=== PATIENT | female | born 1995 | race American Indian/Alaskan Native ===

== ENCOUNTER 2019-12-20 22:43 | Emergency (ER) | payer BC ==
[2019-12-21 00:03] VITALS: BP 122/85
[2019-12-21 00:52] LABS: Hemoglobin 14.3 gm/dl (10.1-14.3); Mean Corpuscular HGB Conc 34 % (30-34); Mean Corpuscular Volume 94 fl (79-97); Platelet Count 277 K/mm3 (140-440); Red Blood Count 4.46 M/mm3 (3.65-5.03); Red Cell Distribution Width 12.7 % (13.2-15.2)
[2019-12-21 01:08] LABS: Bacteria,Urine 1+ /HPF (Negative); Bilirubin,Urine NEG (Negative); Blood,Urine NEG (Negative); Color,Urine Amber (Yellow); Mucus,Urine 3+ /HPF
[2019-12-21 02:28] LABS: Anisocytosis 1+; Band Neutrophils # (Manual) 0.1 K/mm3; Eosinophils % (Manual) 0 % (0.0-4.3); Platelet Estimate Consistent w Auto; Total Cells Counted 100
--- NOTE | 2019-12-21 03:35 | Emergency Department Report ---
ED Female HPI - General Chief complaint: Vaginal Bleeding Stated complaint: ABD PAIN Time Seen by Provider: 12/21/19 02:02 Source: patient Mode of arrival: Ambulatory Limitations: No Limitations - History of Present Illness Initial comments: 24-year-old -Finnish female presents to the emergency department complaining of a 5-day history of heavy vaginal bleeding with pelvic cramping off and on and having no menses for the last 2 months. Reports no fever, chills, sweats no chest pain or palpitations no nausea vomiting no abdominal trauma. MD Complaint: vaginal bleeding -: Gradual Location: suprapubic Radiation: suprapubic Severity: mild Quality: dull Consistency: constant Improves with: none Worsens with: none Associated Symptoms: vaginal bleeding. denies: abdominal pain, loss of sridevi etite, dysuria, shortness of breath, weakness - Related Data Allergies Allergy/AdvReac Type Severity Reaction Status Date / Time No Known Allergies Allergy Unverified 12/21/19 00:00 ED Review of Systems ROS: Stated complaint: ABD PAIN Other details as noted in HPI Comment: All other systems reviewed and negative ED Past Medical Hx - Past Medical History Previous Medical History?: No - Surgical History Past Surgical History?: No - Social History Smoking Status: Current Every Day Smoker Substance Use Type: Marijuana ED Physical Exam - General Limitations: No Limitations General appearance: alert, in no apparent distress - Head Head exam: Present: atraumatic, normocephalic - Eye Eye exam: Present: normal appearance, PERRL, EOMI - ENT ENT exam: Present: mucous membranes moist - Neck Neck exam: Present: normal inspection - Respiratory Respiratory exam: Present: normal lung sounds bilaterally. Absent: respiratory distress - Cardiovascular Cardiovascular Exam: Present: regular rate, normal rhythm. Absent: systolic murmur, diastolic murmur, rubs, gallop - GI/Abdominal GI/Abdominal exam: Present: soft, tenderness, normal bowel sounds. Absent: guarding, rebound, hyperactive bowel sounds, hypoactive bowel sounds - Extremities Exam Extremities exam: Present: normal inspection, normal capillary refill - Back Exam Back exam: Present: normal inspection. Absent: CVA tenderness (R), CVA tenderness (L) - Neurological Exam Neurological exam: Present: alert, oriented X3, CN II-XII intact, normal gait. Absent: motor sensory deficit, reflexes normal - Psychiatric Psychiatric exam: Present: normal affect, normal mood. Absent: anxious, flat affect, suicidal ideation - Skin Skin exam: Present: warm, dry, intact, normal color. Absent: rash, cyanosis, diaphoretic, erythema, petechiae, pallor ED Course Vital Signs 12/20/19 23:41 Temperature 98.3 F Pulse Rate 119 H Respiratory 18 Rate Blood Pressure 122/85 O2 Sat by Pulse 98 Oximetry ED Medical Decision Making - Lab Data Result diagrams: 12/21/19 00:13 Critical care attestation.: If time is entered above; I have spent that time in minutes in the direct care of this critically ill patient, excluding procedure time. ED Disposition Clinical Impression: Negative test, Vaginal bleeding Disposition: - TO HOME OR SELFCARE Is pt being admited?: No Does the pt Need Aspirin: No Condition: Stable Instructions: Menstruation (ED), Menorrhagia (ED), Dysfunctional Uterine Bleeding (ED) Referrals: [facility] [Provider Group] - 3-5 Days
== END 2019-12-21 03:30 | disposition home or self-care (01) ==
LOC: ED 22:43
DX: N93.9 Abnormal uterine and vaginal bleeding, unspecified (principal); R10.2 Pelvic and perineal pain; F17.200 Nicotine dependence, unspecified, uncomplicated; F12.10 Cannabis abuse, uncomplicated
CPT/HCPCS: 36415; 81001; 84702; 85007; 85025; 86900; 86901; 87086; 99283

== ENCOUNTER 2020-04-21 13:00 | Emergency (ER) | payer BC ==
[2020-04-21] MEDS ORDERED: DIPHtheria,PERTUSSIS(ACELL),TETANUS VACCINE/PF 0.5 ML VIAL IM ONE (13:16)
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
[2020-04-21] MEDS ORDERED: cephALEXin 500 MG CAP PO ONE (13:32)
[2020-04-21] MEDS ORDERED: IBUPROFEN 800 MG TAB PO ONE (13:32)
[2020-04-21 14:36] VITALS: BP 144/82
== END 2020-04-21 14:36 | disposition home or self-care (01) ==
LOC: ED 13:00
DX: T24.002A Burn of unspecified degree of unspecified site of left lower limb, except ankle and foot, initial encounter (principal); T28.2XXA Burn of other parts of alimentary tract, initial encounter; F17.200 Nicotine dependence, unspecified, uncomplicated; F12.90 Cannabis use, unspecified, uncomplicated; Z79.899 Other long term (current) drug therapy; X08.8XXA Exposure to other specified smoke, fire and flames, initial encounter; Y93.89 Activity, other specified; Y92.009 Unspecified place in unspecified non-institutional (private) residence as the place of occurrence of the external cause; Y99.8 Other external cause status
CPT/HCPCS: 90471; 90715

== ENCOUNTER 2020-07-10 11:00 | Emergency (ER) | payer BC ==
[2020-07-10 11:12] VITALS: BP 142/89
--- NOTE | 2020-07-10 11:29 | Emergency Department Report ---
ED Rash HPI - HPI Chief Complaint: Skin Rash Stated Complaint: BREAKOUT/RASH Time Seen by Provider: 07/10/20 11:25 Duration: 3 weeks Location: Chest, Upper Extremities, Lower Extremities Suspected Cause: Unknown Severity: moderate Other History: 25-year-old -Surinamese female presents to the emergency room complaining of a rash to her lower abdomen bilateral arms and left lower extremities. Patient's denies any itchiness or pain from the rash. Patient denies any fever chills no nausea no vomiting no shortness of breath or chest pain. She states that the rash is not painful there is no discharge. She denies any new body wash new detergents no new pets does not smoke. She reports she is up-to-date on all vaccines. ED Review of Systems ROS: Stated complaint: BREAKOUT/RASH Other details as noted in HPI Comment: All other systems reviewed and negative ED Past Medical Hx - Past Medical History Previous Medical History?: No - Surgical History Past Surgical History?: Yes Additional Surgical History: skin graft to left foot - Social History Smoking Status: Current Every Day Smoker Substance Use Type: Marijuana - Medications Home Medications: Home Medications Medication Instructions Recorded Confirmed Last Taken Type Silver Sulfadiazine [Ssd] 1 applicatio TP BID #1 each 04/21/20 Unknown Rx cephALEXin [Keflex] 500 mg PO Q12HR #20 cap 04/21/20 Unknown Rx traMADoL [Ultram] 50 mg PO Q6HR PRN #10 tablet 04/21/20 Unknown Rx Sulfamethoxazole/Trimethoprim 1 each PO BID 7 Days #14 tablet 07/10/20 Unknown Rx [Bactrim DS TAB] Rash Exam - Exam General: Vital signs noted. No distress. Alert and acting appropriately. HEENT: No Periorbital Edema, No Conjuctival Injection, No Chemosis, No Perioral Edema, No Tongue Edema, No Uvular Edema, No Compromised Airway, No Drooling Lungs: Yes Good Air Exchange (Normal Breath Sounds), No Wheezes, No Ronchi, No Stridor, No Cough, No Labored Respirations, No Retractions, No Use of Accessory Muscles, No Other Abnormal Lung Sounds Heart: Yes Regular, No Murmur Skin: Yes Maculopapular Rash (Bilateral upper extremity chest) Other: Positive: Abdomen Normal, Neurologic Normal, Musculoskeletal Normal ED Course Vital Signs 07/10/20 11:11 Temperature 98.2 F Pulse Rate 77 Respiratory 16 Rate Blood Pressure 142/89 O2 Sat by Pulse 97 Oximetry ED Medical Decision Making - Medical Decision Making 25-year-old -Surinamese female presents to the emergency room complaining of a rash to her lower abdomen bilateral arms and left lower extremities. Pat azael's denies any itchiness or pain from the rash. Patient denies any fever chills no nausea no vomiting no shortness of breath or chest pain. She states that the rash is not painful there is no discharge. She denies any new body wash new detergents no new pets does not smoke. She reports she is up-to-date on all vaccines. Rash appears to be a staph infection. We will place patient on Bactrim. And a referral to dermatology. Instruct patient to wash with Dial antibacterial soap. Critical care attestation.: If time is entered above; I have spent that time in minutes in the direct care of this critically ill patient, excluding procedure time. ED Disposition Clinical Impression: Staph skin infection Disposition: DC- TO HOME OR SELFCARE Is pt being admited?: No Does the pt Need Aspirin: No Condition: Stable Additional Instructions: Complete antibiotics as prescribed. Wash your body with antibacterial soap such as Dial. Follow-up with a bar assistant. Prescriptions: Sulfamethoxazole/Trimethoprim [Bactrim DS TAB] 1 each PO BID 7 Days #14 tablet Referrals: [facility] [Provider Group] - 3-5 Days Forms: Work/School Release Form(ED)
== END 2020-07-10 19:00 | disposition home or self-care (01) ==
LOC: ED 11:00
DX: L08.89 Other specified local infections of the skin and subcutaneous tissue (principal); F17.200 Nicotine dependence, unspecified, uncomplicated; F12.10 Cannabis abuse, uncomplicated; Z98.890 Other specified postprocedural states; Z79.899 Other long term (current) drug therapy
CPT/HCPCS: 99281